=== PATIENT | male | born 1995 | race African-American/Black ===

== ENCOUNTER 2016-11-21 22:51 | Emergency (ER) | payer OTHER, MEDICAID ==
[2016-11-21 23:04] VITALS: BP 111/69; PULSE 66; RESP 16; TEMP 97.7; O2SAT 94
--- NOTE | 2016-11-21 23:12 | EDPHY ---
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 He states that he got home tonight took a hot shower and developed inner right thigh pain groin pain. He denies abdominal pain , nausea, vomiting, back pain or testicular pain, denies any or urinary complaints. Past Medical History:Brain abscess, Aspergillus sinus infection, premature 25 weeks, seizures Past Surgical History: extensive sinus surgery Social History: lives locally here [place], mom at bedside, lives independently in his own apartment no use of drugs alcohol tobacco products Family History: Noncontributory ROS REVIEW OF SYSTEMS: A comprehensive 10 point review of systems is otherwise negative aside from elements mentioned in the history of present illness. Exam Constitutional triage nursing summary reviewed, vital signs reviewed, awake/ alert. Eyes normal conjunctivae and sclera, EOMI, PERRLA. HENT normal inspection, atraumatic, moist mucus membranes, no epistaxis, neck supple/ no meningismus, no raccoon eyes. Respiratory clear to auscultation bilaterally, normal breath sounds, no respiratory distress, no wheezing. Cardiovascular rate normal, regular rhythm, no murmur, no edema, distal pulses normal. Gastrointestinal soft, non-tender, no rebound, no guarding, normal bowel sounds, no distension, no pulsatile mass. Genitourinary no CVA tenderness. Normal male exam normal cremasteric reflex normal testicular lie, no evidence of hernia in the inguinal or scrotal region, no abdominal hernia visualized. Musculoskeletal right inner groin: tender palpation over the in her hamstring tendon, that inserts into the right medial groin region, no testicular pain, normal exam, no obvious hernia, no inguinal lymphadenopathy , distally his right leg is neurovascularly intact, good pulse, good cap refill , good sensation, does have pain with external rotation of the right leg with resistance, and focal tenderness along the right inner groin region right upper thigh along attendant. No other obvious signs of trauma. no midline vertebral tenderness, full range of motion, no calf swelling, no tenderness of extremities , no meningismus, good pulses, neurovascularly intact. Skin pink, warm, & dry, no rash, skin atraumatic. Neurologic awake, alert and oriented x 3, AAOx3, moves all 4 extremities equally, motor intact, sensory intact, CN II-XII intact, normal cerebellar, normal vision, normal speech. Psychiatric normal mood/affect. Heme/Lymph/Immune no lymphadenopathy. Differential Diagnosis: This patient had an x-ray of his right hip to evaluate for bony abnormality, patient also had an ultrasound is right lower extremity make sure does not have a DVT, be given ibuprofen 800 mg for pain control. Medical Decision Making: Plan is for patient to have an x-ray of his right hip , ultrasound of his right lower extremity rule out DVT or bony abnormality. Re-evaluation: ED x-ray Right hip: Negative for acute bony abnormality specifically no fracture Ultrasound of the right lower extremity. The results of the study are negative for DVT I discussed the results of this study with the radiologist Dr. Varun Hatch [id number]; re-evaluation this time is patient is feeling better is able to ambulate , no hernia on exam, ultrasound x-ray unremarkable I have ordered him 2.5 mg of Valium for muscle spasm, ibuprofen 800 mg however prescription for both of these. He understands to take it easy, return emergency room if there is any worsening symptoms questions or concerns should also follow up his primary care doctor. Most likely this is inner groin strain pull From shoveling snow extensively today. 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 crani. (excision of cyst from brain abscess). seizures. aspirgilious fungus sinusitis with sinus surgeries x 7. asthma; dystonic reaction to reglan, allergies. R EYE SURGERY - Social History Smoking Status: Never smoked Constitutional: Initial Vital Signs Temperature (C) 36.5 C 11/21/16 22:57 Heart Rate 66 11/21/16 22:57 Respiratory Rate 16 11/21/16 22:57 Blood Pressure 111/69 11/21/16 22:57 O2 Sat (%) 94 11/21/16 22:57 O2 Delivery Mode Room Air Allergies/Adverse Reactions: egg [Egg] Allergy (Severe, Verified 06/25/16 21:32) peanut [Peanut] Allergy (Severe, Verified 06/25/16 21:32) Influenza Virus Vaccines [Influenza Virus Vaccine] Allergy (Intermediate, Verified 06/25/16 21:32) hydrocodone Allergy (Verified 06/25/16 21:32) latex [Latex] Allergy (Verified 06/25/16 21:32) metoclopramide HCl [From Reglan] Allergy (Verified 06/25/16 21:32) prednisone Allergy (Verified 06/25/16 21:32) Shellfish *RETIRED-07/26/12 [Shellfish] Allergy (Verified 06/25/16 21:32) tomato [Tomato] Allergy (Verified 06/25/16 21:32) tree nut [Tree Nut] Allergy (Verified 06/25/16 21:32) Home Medications: Medication Instructions Recorded Calcium Carbonate [Tums 500MG 12/26/15 (OTC)] Dymista Nasal Dupree 12/26/15 FEXOFENADINE HCL 12/26/15 Miralax 17 gm (OTC) 12/26/15 Pulmicort 12/26/15 Sertraline HCl 12/26/15 VIMPAT 12/26/15 Vitamin A & D 12/26/15 Albuterol [Proventil Inhaler HFA 1 - 2 puffs IH Q4H #1 mdi 06/29/16 (*)] Diazepam [Valium 5 MG (*)] 5 mg PO TID PRN #7 tab 11/22/16 Ibuprofen [Motrin (*)] 800 mg PO Q6-8PRN #10 tab 11/22/16 Medical Decision Making - Data Points Medications Given: Discontinued Medications Ibuprofen (Motrin) 800 mg PO EDNOW ONE Stop: 11/21/16 23:27 Last Admin: 11/21/16 23:44 Dose: 800 mg Departure - Departure Disposition: Home, Routine, Self-Care Clinical Impression: Groin strain Qualifiers: Encounter type: initial encounter Laterality: right Qualifier Code: (S76.211A) Strain of adductor muscle, fascia and tendon of right thigh, initial encounter Condition: Good Instructions: Groin Pain (ED), Groin Strain (ED) Additional Instructions: 1. Return to the emergency room if develops any worsening pain questions or concerns. 2. Take ibuprofen for the next 3-5 days 3. take Valium for muscle spasm however this can make you very sleepy. Referrals: NONE *PRIMARY CARE P,. [Primary Care Provider] - As per Instructions Prescriptions: Ibuprofen [Motrin (*)] 800 mg PO Q6-8PRN #10 tab Diazepam [Valium 5 MG (*)] 5 mg PO TID PRN #7 tab PRN Reason: Spasms
[2016-11-21] MEDS ORDERED: IBUPROFEN 200 MG TAB PO ONE (23:26)
--- NOTE | 2016-11-21 23:56 | DX ---
AP Supine Pelvis and Frog Lateral View of the Right Hip, 2 Views Total, at 11:34 p.m. Clinical History: 21-year-old male with right hip and right groin pain. Comparison Study: None. Findings: Bone mineralization is preserved. Each femoral head is well-seated within its respective ac etabulum. There is no fracture, dislocation, lytic or blastic lesion, or soft tissue calcification. T he femoral-acetabular joint spaces are preserved. The ischial pubic rami are intact. There is no symp hysis pubis or SI joint diastasis. The sacral arcuate lines are well-contoured. The lumbosacral junct ion appears normal. Impression: Normal.
--- NOTE | 2016-11-22 00:16 | US ---
Venous Duplex Doppler Study of the Right Lower Extremity Clinical Indications: 21-year-old male complaining of right groin pain since 9:00 p.m. Rule out DVT. Technique: A high-frequency transducer was used for imaging and Doppler study of the deep veins of t he leg from the upper calf to the groin. Pulsed Doppler and color Doppler were utilized, along with various maneuvers, to assess flow in the deep veins. Cursory evaluation of the left common femoral ve in was obtained for comparison purposes, and is normal. Comparison Exam: None. Findings: The deep veins of the right groin, thigh, knee, and upper calf are well-displayed, and are normally compressible. Doppler flow patterns are unremarkable. There is no evidence of deep venous thrombosis. There is normal compression of the greater saphenous vein, without superficial thrombosi s. The popliteal fossa is unremarkable. Impression: There is no sonographic evidence of deep vein thrombosis in the right leg. Results were called to Dr. Yared Silverio. A test result has been communicated to a licensed care provider and documented in [facility], 12:13:40 A M, 11/22/2016, [facility] Message ID [id number].
[2016-11-22] MEDS ORDERED: DIAZEPAM 5 MG TAB PO ONE (00:25)
== END 2016-11-22 00:40 | disposition home or self-care (01) ==
DX: S76.211A Strain of adductor muscle, fascia and tendon of right thigh, initial encounter (principal); J45.909 Unspecified asthma, uncomplicated; Z91.010 Allergy to peanuts; Z91.040 Latex allergy status; X58.XXXA Exposure to other specified factors, initial encounter; Y99.0 Civilian activity done for income or pay; Y93.H1 Activity, digging, shoveling and raking

== ENCOUNTER 2017-04-24 22:43 | Emergency (ER) | payer OTHER, MEDICAID ==
[2017-04-24] MEDS ORDERED: NS 1,000 ML IV ONE (23:08)
[2017-04-24 23:17] LABS: % IMMATURE GRANULYOCYTES 0.2 % (0.0-1.1); ABSOLUTE IMMATURE GRANULOCYTES 0.01 10^3/uL (0.00-0.10); ADD DIFF? NO; ADD MORPH? NO; ADD SCAN? NO; ATYPICAL LYMPHOCYTE FLAG 0 (0-99); FRAGMENT RBC FLAG 0 (0-99); HEMATOCRIT 48.7 % (40.0-51.0); HEMOGLOBIN 16.4 g/dL (13.7-17.5); LEFT SHIFT FLG 0 (0-99); LIPEMIA HEMOLYSIS FLAG 80 (0-99); MEAN CELL HEMOGLOBIN 28.5 pg (27.9-34.1); MEAN CELL HEMOGLOBIN CONCENTR. 33.7 g/dL (32.4-36.7); MEAN CELL VOLUME 84.7 fL (81.5-99.8); MEAN PLATELET VOLUME 12.6 fL (8.7-11.7); PLATELET CLUMPS FLAG 0 (0-99); PLATELET COUNT 146 10^3/uL (150-400); RED BLOOD CELL COUNT 5.75 10^6/uL (4.40-6.38)
[2017-04-24 23:24] LABS: ANION GAP 10 mEq/L (8-16); CALCIUM 9.7 mg/dL (8.5-10.4); CARBON DIOXIDE 22 mEq/l (22-31); CHLORIDE 106 mEq/L (97-110); CREATININE 1.4 mg/dL (0.7-1.3); GLOMERULAR FILTRATION RATE > 60; GLUCOSE 81 mg/dL (70-100); POTASSIUM 4.1 mEq/L (3.5-5.2); SODIUM 138 mEq/L (134-144)
[2017-04-24] MEDS ORDERED: LORazepam 2 MG/ML INJ ONE (23:36)
[2017-04-25] MEDS ORDERED: LORazepam 2 MG/ML INJ IVP ONE (00:30)
[2017-04-25] MEDS ORDERED: ACETAMINOPHEN 325 MG TAB PO ONE (00:30)
--- NOTE | 2017-04-25 00:34 | EDPHY ---
H & P Stated Complaint: "heat exhaustion" seizure Time Seen by Provider: 04/24/17 23:24 HPI/ROS: CHIEF COMPLAINT: Concerned about heat exhaustion HISTORY OF PRESENT ILLNESS: This is a 22-year-old male with a history of being born at 25 weeks, developmental delay, and a seizure disorder along with pseudoseizures. He presents with his mother edelmira. They are both concerned about the possibility of heat exhaustion. He spent the day outside, the temperature today was in the 90s, doing yd work. He contacted her around 7:00 p.m. and stated that he did not feel well. When she saw him she recommended of cool shower and some ice packs, both of which he tried. He continued to feel poorly. He takes Vimpat for seizures. She noticed that he has had 2 staring episodes, 1 at triage and 1 at home. These have been self-limited. He has not been altered afterwards. He has not otherwise been ill recently. He does not provide any specifics about how he is feeling but just states that he does not feel well. He reports headache, which his mother states is common for him and often follows seizure activity. REVIEW OF SYSTEMS: A ten point review of systems was performed and is negative with the exception of the items mentioned in the HPI. His mother assisted with this. 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 seizures and pseudoseizures. aspirgillous fungus sinusitis with sinus surgeries x 7. asthma. 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 R EYE SURGERY - Social History Smoking Status: Never smoked Alcohol Use: None Drug Use: None Additional Social History: He is accompanied by his mother today. He lives in a supervised setting. - Physical Exam Exam: General Appearance: Alert. Vital signs reviewed. Eyes: Pupils equal and round, no conjunctival injection, no discharge. Anicteric. ENT, Mouth: Mucous membranes are moist, no oropharyngeal erythema or edema. No tongue injury. Neck: No lymphadenopathy, supple. Respiratory: Lungs are clear to auscultation; no wheezes, rales, or rhonchi. Cardiovascular: Regular rate and rhythm; no murmur, rub, or gallop. Gastrointestinal: Abdomen is soft and nontender, no masses or organomegaly, bowel sounds normal. Skin: Warm and dry, no rashes on exposed skin, normal color. Back: Nontender to palpation over the thoracolumbar spine. No CVAT. Extremities: No lower extremity edema, no calf tenderness or swelling. Neurological: Alert and oriented to hospital and situation. Moving all four extremities easily and equally. KELLIE. EOMI. Facial expression symmetric. Tongue midline. Strength 5/5 with testing of major motor groups. Psychiatric: Flat affect. Constitutional: Initial Vital Signs Temperature (C) 36.4 C 04/24/17 22:50 Heart Rate 63 04/24/17 22:50 Respiratory Rate 16 04/24/17 22:50 Blood Pressure 112/85 H 04/24/17 22:50 O2 Sat (%) 99 04/24/17 22:50 O2 Delivery Mode Room Air O2 (L/minute) 2 Allergies/Adverse Reactions: egg [Egg] Allergy (Severe, Verified 04/24/17 22:48) peanut [Peanut] Allergy (Severe, Verified 04/24/17 22:48) Influenza Virus Vaccines [Influenza Virus Vaccine] Allergy (Intermediate, Verified 04/24/17 22:48) hydrocodone Allergy (Verified 04/24/17 22:48) latex [Latex] Allergy (Verified 04/24/17 22:48) metoclopramide HCl [From Reglan] Allergy (Verified 04/24/17 22:48) prednisone Allergy (Verified 04/24/17 22:48) Shellfish *RETIRED-07/26/12 [Shellfish] Allergy (Verified 04/24/17 22:48) tomato [Tomato] Allergy (Verified 04/24/17 22:48) tree nut [Tree Nut] Allergy (Verified 04/24/17 22:48) Home Medications: Medication Instructions Recorded Calcium Carbonate [Tums 500MG 12/26/15 (OTC)] FEXOFENADINE HCL 12/26/15 Miralax 17 gm (OTC) 12/26/15 Pulmicort 02/10/16 Sertraline HCl 12/26/15 VIMPAT 12/26/15 Vitamin A & D 12/26/15 Albuterol [Proventil Inhaler HFA 1 - 2 puffs IH Q4H #1 mdi 06/29/16 (*)] Diazepam [Valium 5 MG (*)] 5 mg PO TID PRN #7 tab 11/22/16 Ibuprofen [Motrin (*)] 800 mg PO Q6-8PRN #10 tab 11/22/16 Medical Decision Making ED Course/Re-evaluation: During my initial evaluation he had a brief episode of staring. No associated limb movements. No loss of consciousness. This lasted perhaps 1-2 minutes. He received a dose of Ativan IV at that time. This episode resolved. There was no postictal state. In discussion with his mother she thinks that these are likely pseudoseizures that he is experiencing. She is concerned about the possibility of heat exhaustion. I do not think that he is currently suffering from heat exhaustion. He received 1 L of normal saline intravenously for treatment of presumed dehydration after being outside all day with very little water intake. He is noted to have a creatinine of 1.4. In the past his creatinine is been normal. He has a normal BUN. Although this could be related to dehydration I would expect to see an elevation of BUN if that was the case. I am recommending that this be followed up by his primary care provider. It is possible that 1 of his medications is behind this elevation of creatinine. He is also noted to have slightly low platelets, which has been the case in the past. He was observed in the emergency department for 2 hours during which time he had no further seizure-like episodes. I feel comfortable with him returning home and his mother agrees. She will be with him tonight. I am encouraging follow-up both with his neurologist and with his primary care physician. I discussed with him things that might increase his seizure activity with these including temperature extremes, not eating or drinking regularly, and lack of sleep. Differential Diagnosis: Seizure including but not limited to electrolyte abnormality, alcohol withdrawal , medication noncompliance, head injury, and breakthrough seizure. - Data Points Laboratory Results: Laboratory Results 04/24/17 23:05 04/24/17 23:05 Medications Given: Discontinued Medications Acetaminophen (Tylenol) 650 mg PO EDNOW ONE Stop: 04/25/17 00:31 Last Admin: 04/25/17 01:05 Dose: 650 mg Sodium Chloride (Ns) 1,000 mls @ 0 mls/hr IV ONCE ONE PRN Reason: Wide Open Stop: 04/24/17 23:09 Last Admin: 04/24/17 23:10 Dose: 1,000 mls Lorazepam (Ativan Injection) 1 mg IVP EDNOW ONE Stop: 04/25/17 00:31 Last Admin: 04/24/17 23:30 Dose: 1 mg Departure - Departure Disposition: Home, Routine, Self-Care Clinical Impression: Seizure, Elevated serum creatinine Condition: Good Instructions: Epilepsy (ED), Nonepileptic Seizures (ED), Impaired Kidney Function (ED) Additional Instructions: Continue all of your medications as prescribed. Be sure that you drink plenty of water, eat regular meals, and get a good night's sleep. Follow up with your neurologist. Your creatinine, a measure of kidney function, was slightly elevated at 1.4 today. It might be because of being outside in the heat all day and not drinking enough water. Your primary care doctor should know about this. This lab value should be rechecked. Referrals: VIKTORIYA BORJA [Other] - As per Instructions
[2017-04-25 01:13] VITALS: BP 117/77; PULSE 75; RESP 20; TEMP 97.7; O2SAT 97
== END 2017-04-25 01:48 | disposition home or self-care (01) ==
DX: G40.909 Epilepsy, unspecified, not intractable, without status epilepticus (principal); R79.89 Other specified abnormal findings of blood chemistry; J45.909 Unspecified asthma, uncomplicated; Z91.010 Allergy to peanuts; Z91.040 Latex allergy status
CPT/HCPCS: 96361; 96374; 99284; J2060

== ENCOUNTER 2017-06-26 21:34 | Emergency (ER) | payer OTHER, MEDICAID ==
[2017-06-26 21:43] VITALS: RESP 16; TEMP 97.9
[2017-06-26] MEDS ORDERED: ALBUTEROL 3 ML DEYVIAL IH ONE (21:58)
--- NOTE | 2017-06-26 22:06 | EDPHY ---
H & P Stated Complaint: difficulty breathing with cough today, Hx of asthma- Time Seen by Provider: 06/26/17 21:49 HPI/ROS: Chief Complaint: Cough, shortness of breath HPI: A 22-year-old male with a history of developmental delay, ex-25 week preemie with also history of asthma and seizure disorders presenting with 1 day of worsening cough. The patient's father states that he started having cough last night given some Tessalon last tonight. Over the course today states that he has had persistent cough. He has used an albuterol inhaler and also use an albuterol neb at home with some relief. Denies any fevers or chills. No chest pain. No shortness of breath. No nausea or vomiting. Patient has a cough productive of whitish sputum. Was complaining of some chest tightness at 4 o' clock this afternoon that has since resolved. Last episode was 8 o'clock. Patient states that he is not on regular control inhalers. Dad thinks that the albuterol that he game in a nebulizer might be old. ROS: 10 point Review of Systems is negative except as noted in the HPI. PMH: A ex-25 week, developmental delay, seizure disorder, asthma Social History: No smoking, there are smokers in the home Family History: non-contributory Physical Exam: Gen: Awake, Alert, No Distress HEENT: Nose: no rhinorrhea Eyes: PERRLA, EOMI Mouth: Moist mucosa Neck: Supple, no JVD Chest: nontender, very mild wheezes at the bilateral bases, good air movement, no rales or rhonchi Heart: S1, S2 normal, no murmur Abd: Soft, non-tender, no guarding Back: no CVA tenderness, no midline tenderness Ext: no edema, non-tender Skin: no rash Neuro: CN II-XII intact, Sensation grossly intact, Strength 5/5 in bilateral upper and lower extremities - Personal History Current Tetanus/Diphtheria Vaccine: Yes Tetanus Vaccine Date: < 10 years - Medical/Surgical History Hx Asthma: Yes Hx Chronic Respiratory Disease: No Hx Diabetes: No Hx Cardiac Disease: No Hx Renal Disease: No Hx Cirrhosis: No Hx Alcoholism: No Hx HIV/AIDS: No Hx Splenectomy or Spleen Trauma: No Other PMH: 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 seizures and pseudoseizures. aspirgillous fungus sinusitis with sinus surgeries x 7. asthma. 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 R EYE SURGERY - Social History Smoking Status: Never smoked Constitutional: Initial Vital Signs Temperature (C) 36.6 C 06/26/17 21:41 Heart Rate 80 06/26/17 21:41 Respiratory Rate 16 06/26/17 21:41 Blood Pressure 125/79 H 06/26/17 21:41 O2 Sat (%) 95 06/26/17 21:41 O2 Delivery Mode Room Air Allergies/Adverse Reactions: egg [Egg] Allergy (Severe, Verified 04/24/17 22:48) peanut [Peanut] Allergy (Severe, Verified 04/24/17 22:48) Influenza Virus Vaccines [Influenza Virus Vaccine] Allergy (Intermediate, Verified 04/24/17 22:48) hydrocodone Allergy (Verified 04/24/17 22:48) latex [Latex] Allergy (Verified 04/24/17 22:48) metoclopramide HCl [From Reglan] Allergy (Verified 04/24/17 22:48) prednisone Allergy (Verified 04/24/17 22:48) Shellfish *RETIRED-07/26/12 [Shellfish] Allergy (Verified 04/24/17 22:48) tomato [Tomato] Allergy (Verified 04/24/17 22:48) tree nut [Tree Nut] Allergy (Verified 04/24/17 22:48) Home Medications: Medication Instructions Recorded Calcium Carbonate [Tums 500MG 12/26/15 (OTC)] FEXOFENADINE HCL 12/26/15 Miralax 17 gm (OTC) 12/26/15 Pulmicort 12/26/15 Sertraline HCl 12/26/15 VIMPAT 12/26/15 Vitamin A & D 12/26/15 Albuterol [Proventil Inhaler HFA 1 - 2 puffs IH Q4H #1 mdi 06/29/16 (*)] Ibuprofen [Motrin (*)] 800 mg PO Q6-8PRN #10 tab 11/22/16 Albuterol 5 mg/ml INH [Proventil] 2.5 mg IH QID #25 btl 06/26/17 Olopatadine 0.1% 06/26/17 Topiramate 06/26/17 Medical Decision Making ED Course/Re-evaluation: Patient is improved after albuterol nebulizer treatment. Lungs are clear. Vital signs and oxygen levels are normal. He is afebrile. He is otherwise well- appearing. No focal findings on exam. Will discharge with prescription for a new abuse oral solution, follow up with primary care physician on Thursday. Return for worsening. - Data Points Medications Given: Discontinued Medications Albuterol (Proventil Neb) 3 ml IH EDNOW ONE Stop: 06/26/17 21:59 Last Admin: 06/26/17 22:08 Dose: 3 ml Departure - Departure Disposition: Home, Routine, Self-Care Clinical Impression: Exacerbation of asthma Condition: Good Instructions: Asthma (ED) Additional Instructions: Follow up with your primary care physician on Thursday. Return emergency depart for increasing shortness of breath, worsening cough, fevers, chills, or any other concerns. Referrals: NONE *PRIMARY CARE P,. [Primary Care Provider] - As per Instructions Prescriptions: Albuterol 5 mg/ml INH [Proventil] 2.5 mg IH QID #25 btl
[2017-06-26 23:06] VITALS: BP 111/74; PULSE 64; O2SAT 96
== END 2017-06-26 23:06 | disposition home or self-care (01) ==
DX: J45.901 Unspecified asthma with (acute) exacerbation (principal); Z91.040 Latex allergy status

== ENCOUNTER 2017-10-30 13:01 | Emergency (ER) | payer OTHER, MEDICAID ==
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
[2017-10-30 13:14] VITALS: BP 139/69; PULSE 71; RESP 18; TEMP 97.7; O2SAT 100
== END 2017-10-30 14:16 | disposition home or self-care (01) ==
LOC: EDUNIT#
DX: F63.9 Impulse disorder, unspecified (principal)

== ENCOUNTER 2017-12-10 15:55 | Emergency (ER) | payer OTHER, MEDICAID ==
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
[2017-12-10 17:48] LABS: PLATELET COUNT 159 10^3/uL (150-400)
[2017-12-10 23:40] VITALS: BP 109/67; PULSE 71; RESP 20; TEMP 98.1; O2SAT 93
--- NOTE | 2017-12-11 11:23 | ASMTCMCOM ---
CM Note CM Note Notes: Chart review and follow up call to patient's mother, Allyson . Patient was seen in the ER last night and discharged after TLC/behavioral health consult and assessment. Patient's mother tells this CM that she is not interested in a referral or follow up at [facility] but is considering contacting a physician who has been involved with patient in the past-Dr. Mario Hale. Allyson is appreciative of CM call and I have asked her to call back with any questions or referral information prn Date Signed: 12/11/2017 11:22 AM Electronically Signed By:Heide Brar RN
== END 2017-12-10 23:40 | disposition home or self-care (01) ==
LOC: EDUNIT#
DX: F91.8 Other conduct disorders (principal); J45.909 Unspecified asthma, uncomplicated; Z91.010 Allergy to peanuts; Z91.040 Latex allergy status
CPT/HCPCS: 80305; G0480

== ENCOUNTER 2018-04-09 14:37 | Emergency (ER) | payer OTHER, MEDICAID ==
--- NOTE | 2018-04-09 14:48 | CPEKG ---
Heart Rate: 61 RR Interval: 984 P-R Interval: 160 QRSD Interval: 80 QT Interval: 392 QTC Interval: 395 P Bethel: 53 QRS Bethel: 56 T Wave Bethel: 45 EKG Severity - NORMAL ECG - EKG Impression: SINUS RHYTHM Electronically Signed By: Regis Macdonald 14-Apr-2018 11:59:43
--- NOTE | 2018-04-09 14:51 | EDPHY ---
H & P Time Seen by Provider: 04/09/18 14:40 HPI/ROS: CHIEF COMPLAINT: Syncopal episode HISTORY OF PRESENT ILLNESS: 23-year-old male with medical history significant for seizure disorder, impulse control disorder, developmental delay, arrives by ambulance. History provided by co-worker who describes that he and a co-worker were working in a hot green house, been standing for an extended period of time , complaining of feeling hot and lightheaded and then had a syncopal episode. No seizure activity. No incontinence. No oral trauma. He has no complaints of pain or discomfort. REVIEW OF SYSTEMS: A ten point review of systems was performed and is negative with the exception of the items mentioned in the HPI PAST MEDICAL & SURGICAL HISTORY: Impulse control disorder. Developmental delay. Seizure disorder. SOCIAL HISTORY: Images reviewed by myself PHYSICAL EXAM (Prior to examination, patient consented to physical exam, hands were washed and my usual and customary physical exam procedures followed) 1) GENERAL: Well-developed, well-nourished, alert and oriented. Appears to be in no acute distress. 2) HEAD: Normocephalic, atraumatic 3) HEENT: Pupils equal, round, reactive to light bilaterally. Sclera anicteric. No raccoon eyes. No Medina sign. No rhinorrhea. No otorrhea. Nasopharynx, oropharynx, clear, no lesions. No oral trauma. Ears bilaterally with normal tympanic membranes. 4) NECK: Full range of motion, no meningeal signs. 5) LUNGS: Clear auscultation bilaterally, no wheezes, no rhonchi, no retractions. 6) HEART: Regular rate and rhythm, no murmur, no heave, no gallop. 7) ABDOMEN: No guarding, no rebound, no focal tenderness, negative McBurney's 8) MUSCULOSKELETAL: Moving all extremities, no focal areas of tenderness, no obvious trauma. No peripheral edema or discoloration. 9) BACK: No CVA tenderness, no midline vertebral tenderness, no fluctuance, no step-off, no obvious trauma, no visual or palpable abnormality. 10) SKIN: No rash, no petechiae. 11) Psychiatric: Patient is oriented X 3, there is no agitation. DIFFERENTIAL DIAGNOSIS: In no particular order including but limited to vasovagal syncope, orthostatic hypotension, seizure, cardiac dysrhythmia, heat exhaustion - Personal History Tetanus Vaccine Date: < 10 years - Medical/Surgical History Hx Asthma: Yes Hx Chronic Respiratory Disease: No Hx Diabetes: No Hx Cardiac Disease: No Hx Renal Disease: No Hx Cirrhosis: No Hx Alcoholism: No Hx HIV/AIDS: No Hx Splenectomy or Spleen Trauma: No Other PMH: 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 seizures and pseudoseizures. aspirgillous fungus sinusitis with sinus surgeries x 7. asthma. 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 R EYE SURGERY - Social History Smoking Status: Never smoked Constitutional: Initial Vital Signs Temperature (C) 36.7 C 04/09/18 14:44 Heart Rate 65 04/09/18 14:44 Respiratory Rate 16 04/09/18 14:44 Blood Pressure 105/78 04/09/18 14:44 O2 Sat (%) 96 04/09/18 14:44 O2 Delivery Mode Room Air Allergies/Adverse Reactions: egg [Egg] Allergy (Severe, Verified 04/24/17 22:48) peanut [Peanut] Allergy (Severe, Verified 04/24/17 22:48) Influenza Virus Vaccines [Influenza Virus Vaccine] Allergy (Intermediate, Verified 04/24/17 22:48) hydrocodone Allergy (Verified 04/24/17 22:48) latex [Latex] Allergy (Verified 04/24/17 22:48) metoclopramide HCl [From Reglan] Allergy (Verified 04/24/17 22:48) prednisone Allergy (Verified 04/24/17 22:48) Shellfish *RETIRED-07/26/12 [Shellfish] Allergy (Verified 04/24/17 22:48) tomato [Tomato] Allergy (Verified 04/24/17 22:48) tree nut [Tree Nut] Allergy (Verified 04/24/17 22:48) Home Medications: Medication Instructions Recorded Calcium Carbonate [Tums 500MG 12/26/15 (OTC)] FEXOFENADINE HCL 12/26/15 Miralax 17 gm (OTC) 12/26/15 Pulmicort 12/26/15 Sertraline HCl 12/26/15 VIMPAT 12/26/15 Vitamin A & D 12/26/15 Albuterol [Proventil Inhaler HFA 1 - 2 puffs IH Q4H #1 mdi 06/29/16 (*)] Ibuprofen [Motrin (*)] 800 mg PO Q6-8PRN #10 tab 11/22/16 Albuterol 5 mg/ml INH [Proventil] 2.5 mg IH QID #25 btl 06/26/17 Olopatadine 0.1% 06/26/17 Topiramate 06/26/17 EPIPEN 12/10/17 Flonase Nasal [place] 12/10/17 MIDAZOLAM 12/10/17 Sertraline HCl 12/10/17 Unisom Sleep Aid 12/10/17 Xopenex 12/10/17 diphenhydrAMINE 12/10/17 Medical Decision Making ED Course/Re-evaluation: 2:50 p.m.: I reviewed the patient's old medical records. This time he has no complaints of pain or discomfort. Plan will be EKG, laboratory studies, IV hydration. Re-evaluation with serial examinations. Patient has been answering questions appropriately. Doubt seizure. We discussed possible heat exhaustion versus orthostatic hypotension versus vasovagal syncope. At this time I do not think that hospitalization is indicated. Mother feels comfortable being discharged home. Patient appears well, smiling. Care of patient under supervision of [ secondary] supervising physician Dr Watt. - Data Points Laboratory Results: Laboratory Results 04/09/18 15:51 04/09/18 14:55 Departure - Departure Disposition: Home, Routine, Self-Care Clinical Impression: Syncope, Heat exhaustion Condition: Good Instructions: Heat Exhaustion (ED), Syncope (ED) Referrals: Patient,NotPresent [Unknown] - As per Instructions
[2018-04-09 16:47] LABS: PLATELET COUNT 150 10^3/uL (150-400)
[2018-04-09 17:12] VITALS: BP 125/78
== END 2018-04-09 17:12 | disposition home or self-care (01) ==
LOC: EDUNIT#
DX: R55 Syncope and collapse (principal); T67.5XXA Heat exhaustion, unspecified, initial encounter; J45.909 Unspecified asthma, uncomplicated; Z91.010 Allergy to peanuts; Z91.040 Latex allergy status

== ENCOUNTER 2018-09-09 23:34 | Emergency (ER) | payer OTHER, MEDICAID ==
[2018-09-09 23:39] VITALS: BP 127/85
--- NOTE | 2018-09-09 23:59 | EDPHY ---
H & P Stated Complaint: sinus infection & MARTINEZ Time Seen by Provider: 09/09/18 23:57 HPI/ROS: HPI: This is a 23-year-old male who presents with Chief Complaint: sinus infection & MARTINEZ Location: Bilateral sinus Quality: Pressure and headache Duration: 1-2 days Signs and Symptoms: no fever, no nausea, no vomiting, no photophobia, no noise sensitivity, no neck stiffness, no ear pain, no tinnitus,+ nasal congestion, + sinus pressure, + yellowish nasal discharge, no weakness, no radiation, no aura Timing: Acute on chronic Severity: [id number] Context: Patient has a complicated history of craniotomy and 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 Patient has been complaining of right eye and right cheek headache for the last several hours. Mother gave Excedrin p.m. With no relief of symptoms. Mother is requesting antibiotics. Patient is scheduled for sinus surgery at the [facility] on September 21. He has been outside playing all day. He complains of some left greater than right leg cramping. He reports that the cramping increases with knee flexion on the right. Denies any paresthesias, weakness, decreased range of motion. Modifying Factors: Nasal sprays in Excedrin p.m. Comment: ROS: A comprehensive 10 system review of systems is otherwise negative aside from elements mentioned in the history of present illness. 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 Family history noncontributory. CONSTITUTIONAL: Well-appearing young adult black male, awake and alert, no obvious distress HEENT: Atraumatic and normocephalic, PERRL, EOMI. Strabismus noted. Nares patent; yellowish rhinorrhea; mild nasal mucosal edema; + bilateral maxillary sinus tenderness. Tympanic membranes clear. Oropharynx clear, no exudate and moist pink mucosa. Airway patent. No lymphadenopathy. No meningismus. Cardiovascular: Normal S1/S2, regular rate, regular rhythm, without murmur rub or gallop. PULMONARY/CHEST: Symmetrical and nontender. Clear to auscultation bilaterally. Good air movement. No accessory muscle usage. ABDOMEN: Soft, nondistended, nontender, no rebound, no guarding, no peritoneal signs, no masses or organomegaly. No CVAT. EXTREMITIES: 2/2 pulses, strength 5/5, no deformities, no clubbing, no cyanosis or edema. NEUROLOGICAL: no focal neuro deficits. GCS 15. Plantar reflexes intact. When I place legs into a flexed position patient is able to passively extend them at the hip, knee. SKIN: Warm and dry, no erythema. no rash. Good capillary refill. 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 seizures and pseudoseizures. aspirgillous fungus sinusitis with sinus surgeries x 7. asthma. 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 R EYE SURGERY - Social History Smoking Status: Never smoked Constitutional: Initial Vital Signs Temperature (C) 36.9 C 09/09/18 23:38 Heart Rate 64 09/09/18 23:38 Respiratory Rate 16 09/09/18 23:38 Blood Pressure 127/85 H 09/09/18 23:38 O2 Sat (%) 95 09/09/18 23:38 O2 Delivery Mode Room Air Allergies/Adverse Reactions: egg [Egg] Allergy (Severe, Verified 04/24/17 22:48) peanut [Peanut] Allergy (Severe, Verified 04/24/17 22:48) Influenza Virus Vaccines [Influenza Virus Vaccine] Allergy (Intermediate, Verified 04/24/17 22:48) hydrocodone Allergy (Verified 04/24/17 22:48) latex [Latex] Allergy (Verified 04/24/17 22:48) metoclopramide HCl [From Reglan] Allergy (Verified 04/24/17 22:48) prednisone Allergy (Verified 04/24/17 22:48) Shellfish *RETIRED-07/26/12 [Shellfish] Allergy (Verified 04/24/17 22:48) tomato [Tomato] Allergy (Verified 04/24/17 22:48) tree nut [Tree Nut] Allergy (Verified 04/24/17 22:48) Home Medications: Medication Instructions Recorded Calcium Carbonate [Tums 500MG 12/26/15 (OTC)] FEXOFENADINE HCL 12/26/15 Miralax 17 gm (OTC) 12/26/15 Pulmicort 12/26/15 Sertraline HCl 12/26/15 VIMPAT 12/26/15 Vitamin A & D 12/26/15 Albuterol [Proventil Inhaler HFA 1 - 2 puffs IH Q4H #1 mdi 06/29/16 (*)] Ibuprofen [Motrin (*)] 800 mg PO Q6-8PRN #10 tab 11/22/16 Albuterol 5 mg/ml INH [Proventil] 2.5 mg IH QID #25 btl 06/26/17 Olopatadine 0.1% 06/26/17 Topiramate 06/26/17 EPIPEN 12/10/17 Flonase Nasal [place] 12/10/17 MIDAZOLAM 12/10/17 Sertraline HCl 12/10/17 Unisom Sleep Aid 12/10/17 Xopenex 12/10/17 diphenhydrAMINE 12/10/17 Amoxicillin/Clavulanate Pot 875 mg PO BID #14 tab 09/10/18 [Augmentin 875 MG TAB (*)] Medical Decision Making ED Course/Re-evaluation: Vital signs reviewed and stable upon arrival. Long discussion with patient and mother, they are requesting antibiotics and pain control. Given Augmentin prepack and prescription for same along with Percocet prepack. No LOC. No neurological deficits. Offered mother head CT imaging and she politely declined. Patient is closely followed by Neurology and ENT at [place]. This patient was seen under the supervision of my secondary supervising physician. I evaluated care for this patient independently. Discussed this patient with Dr. Chase. Differential Diagnosis: Headache including but not limited to subarachnoid hemorrhage, migraine headache , tension headache and infectious causes such as meningitis, pharyngitis and sinusitis. - Data Points Medications Given: Discontinued Medications Amoxicillin/Clavulanate Potassium (Augmentin 875mg) 875 mg PO EDNOW ONE PRN Reason: Protocol Stop: 09/10/18 00:18 Last Admin: 09/10/18 00:19 Dose: 875 mg Oxycodone/Acetaminophen (Percocet 5/325mg Prepack#4) 1 btl TAKEHOME EDNOW ONE Stop: 09/10/18 00:13 Last Admin: 09/10/18 00:19 Dose: 1 btl Departure - Departure Disposition: Home, Routine, Self-Care Clinical Impression: Sinus headache Chronic sinusitis, unspecified Qualifiers: Sinusitis location: unspecified location Qualified Code(s): J32.9 - Chronic sinusitis, unspecified Condition: Good Instructions: Sinusitis (ED) Additional Instructions: Take Tylenol 650 mg every 4 hours and/or Ibuprofen 600 mg every 8 hours with food as needed for pain. Use Percocet every 6 hours as needed for severe/break through pain. Do not use Tylenol and Percocet concomitantly. Take Augmentin as directed until complete. Do not skip a dose. Follow-up with ENT at [facility] as planned for surgery on September 21. Referrals: CHRIS WISE [Primary Care Provider] - As per Instructions Prescriptions: Amoxicillin/Clavulanate Pot [Augmentin 875 MG TAB (*)] 875 mg PO BID #14 tab
[2018-09-10] MEDS ORDERED: OXYCODONE/APAP 5/325MG PREPACK#4 BTL TAKEHOME ONE (00:12)
[2018-09-10] MEDS ORDERED: AMOXICILLIN/CLAVULANATE POT 875/125 MG TAB PO ONE ×2 (00:15→00:17)
== END 2018-09-10 00:37 | disposition home or self-care (01) ==
DX: R51 Headache (principal); J32.9 Chronic sinusitis, unspecified; R62.50 Unspecified lack of expected normal physiological development in childhood; Z86.011 Personal history of benign neoplasm of the brain

== ENCOUNTER 2018-11-12 21:43 | Emergency (ER) | payer OTHER, MEDICAID ==
--- NOTE | 2018-11-12 22:54 | EDPHY ---
H & P Time Seen by Provider: 11/12/18 22:00 HPI/ROS: Chief complaint: Right ankle injury History of present illness: This is a 21-year-old male who presents with family for a right ankle injury. [place] Since then mild discomfort on the inner aspect of the ankle. No report of open wounds. No abnormal coolness or paresthesias. No other injuries reported. Smoking Status: Never smoked Physical Exam: General: Alert, nontoxic. Skin: No lesions consistent with trauma to the right lower extremity. Musculoskeletal: Tenderness along the medial malleolus. The rest of the ankle is nontender. The Achilles appears intact. The foot and lower leg are nontender. He is moving the digits, ankle and knee in all salomon well. Vascular: DP and PT pulses 2+. Neurologic: Sensation intact in the right leg and foot. Constitutional: Initial Vital Signs Temperature (C) 36.3 C 11/12/18 21:48 Heart Rate 75 11/12/18 21:48 Respiratory Rate 18 11/12/18 21:48 Blood Pressure 161/103 H 11/12/18 21:48 O2 Sat (%) 98 11/12/18 21:48 O2 Delivery Mode Room Air Allergies/Adverse Reactions: egg [Egg] Allergy (Severe, Verified 11/12/18 21:47) peanut [Peanut] Allergy (Severe, Verified 11/12/18 21:47) Influenza Virus Vaccines [Influenza Virus Vaccine] Allergy (Intermediate, Verified 11/12/18 21:47) hydrocodone Allergy (Verified 11/12/18 21:47) latex [Latex] Allergy (Verified 11/12/18 21:47) metoclopramide HCl [From Reglan] Allergy (Verified 11/12/18 21:47) prednisone Allergy (Verified 11/12/18 21:47) Shellfish *RETIRED-07/26/12 [Shellfish] Allergy (Verified 11/12/18 21:47) tomato [Tomato] Allergy (Verified 11/12/18 21:47) tree nut [Tree Nut] Allergy (Verified 11/12/18 21:47) Home Medications: Medication Instructions Recorded Calcium Carbonate [Tums 500MG 12/26/15 (OTC)] FEXOFENADINE HCL 12/26/15 Miralax 17 gm (OTC) 02/10/16 Pulmicort 12/26/15 VIMPAT 12/26/15 Vitamin A & D 12/26/15 Albuterol [Proventil Inhaler HFA 1 - 2 puffs IH Q4H #1 mdi 06/29/16 (*)] Ibuprofen [Motrin (*)] 800 mg PO Q6-8PRN #10 tab 11/22/16 Albuterol 5 mg/ml INH [Proventil] 2.5 mg IH QID #25 btl 06/26/17 Topiramate 06/26/17 EPIPEN 12/10/17 Flonase Nasal [place] 12/10/17 MIDAZOLAM 12/10/17 Sertraline HCl 12/10/17 Unisom Sleep Aid 12/10/17 Xopenex 12/10/17 diphenhydrAMINE 12/10/17 MDM/Departure - MDM Imaging Results: Imaging Impressions Ankle X-Ray 11/12/18 21:53 Impression: No evidence of right ankle fracture. Imaging: I viewed and interpreted images myself ED Course/Re-evaluation: Patient seen under the supervision of my secondary supervising physician Dr. Vipul Lovett. Patient presents to the emergency department with family for a right ankle injury. It is neurovascularly intact with good musculoskeletal control. X-ray negative. Likely sprain/strain. Home care is discussed. They are to follow up with primary care doctor or ortho for recheck. Return precautions are given. Family voiced understanding and agreement with plan. - Depart Disposition: Home, Routine, Self-Care Clinical Impression: Ankle sprain Qualifiers: Encounter type: initial encounter Involved ligament of ankle: unspecified ligament Laterality: right Qualified Code(s): S93.401A - Sprain of unspecified ligament of right ankle, initial encounter Condition: Good Instructions: Ankle Sprain (ED) Additional Instructions: Follow-up with a primary care doctor for continued evaluation and care Use ibuprofen 600 mg 3 times a day for the next 2-3 days Ice the injury, 20 min on, 3 times daily for the next 3 days If symptoms worsen or new symptoms develop return to the emergency department for recheck Referrals: JUSTO DIOP [Other] - As per Instructions Contreras Sanchez MD [Medical Doctor] - As per Instructions
[2018-11-12 23:13] VITALS: BP 145/89
== END 2018-11-12 23:13 | disposition home or self-care (01) ==
DX: S93.401A Sprain of unspecified ligament of right ankle, initial encounter (principal); W50.0XXA Accidental hit or strike by another person, initial encounter; Y92.520 Airport as the place of occurrence of the external cause; Y93.9 Activity, unspecified; Y99.9 Unspecified external cause status
CPT/HCPCS: 73600; 99283; L4350

== ENCOUNTER 2018-12-09 23:58 | Emergency (ER) | payer OTHER, MEDICAID ==
[2018-12-10] MEDS ORDERED: diphenhydrAMINE 25 MG CAP PO ONE (00:22)
--- NOTE | 2018-12-10 00:31 | EDPHY ---
H & P Stated Complaint: allergic Time Seen by Provider: 12/10/18 00:05 HPI/ROS: Chief Complaint: Allergic reaction HPI: 83-year-old male who has a history of developmental delay, ex-24 week preemie, history of multiple allergies including a eggs and peanuts. Patient woke this morning with the sensation of difficulty breathing and itching around his neck. It is similar to prior allergic reactions. He told his caregiver he felt he needed to use his EpiPen. She did not notice any significant swelling and did not administer the epinephrine per brought him here for evaluation. He did eat a sandwich which was brought home by a friend. Unsure if that could have contained a or knots. Currently is complaining of some shortness of breath. Did vomit once at home. No fevers or chills. No abdominal pain. No cough. ROS: 10 systems were reviewed and were negative except those elements noted in the HPI. PMH: Developmental delay, multiple allergies Social History: No smoking, no alcohol, no recreational drug use Family History: non-contributory Physical Exam: Gen: Awake, Alert, No Distress HEENT: Nose: no rhinorrhea Eyes: PERRLA, EOMI Mouth: Moist mucosa, no oropharyngeal erythema or edema Neck: Supple, no JVD Chest: nontender, lungs clear to auscultation Heart: S1, S2 normal, no murmur Abd: Soft, non-tender, no guarding Back: no CVA tenderness, no midline tenderness Ext: no edema, non-tender Skin: no rash Neuro: CN II-XII intact, Sensation grossly intact, Strength 5/5 in bilateral upper and lower extremities - Personal History Current Tetanus Diphtheria and Acellular Pertussis (TDAP): Yes Tetanus Vaccine Date: < 10 years - Medical/Surgical History Hx Asthma: Yes Hx Chronic Respiratory Disease: No Hx Diabetes: No Hx Cardiac Disease: No Hx Renal Disease: No Hx Cirrhosis: No Hx Alcoholism: No Hx HIV/AIDS: No Hx Splenectomy or Spleen Trauma: No Other PMH: 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 seizures and pseudoseizures. aspirgillous fungus sinusitis with sinus surgeries x 7. asthma. 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 R EYE SURGERY - Social History Smoking Status: Never smoked Constitutional: Initial Vital Signs Temperature (C) 36.5 C 12/10/18 00:05 Heart Rate 71 12/10/18 00:05 Respiratory Rate 16 12/10/18 00:05 Blood Pressure 132/96 H 12/10/18 00:05 O2 Sat (%) 98 12/10/18 00:05 O2 Delivery Mode Room Air Allergies/Adverse Reactions: egg [Egg] Allergy (Severe, Verified 12/10/18 00:04) peanut [Peanut] Allergy (Severe, Verified 12/10/18 00:04) Influenza Virus Vaccines [Influenza Virus Vaccine] Allergy (Intermediate, Verified 12/10/18 00:04) hydrocodone Allergy (Verified 12/10/18 00:04) latex [Latex] Allergy (Verified 12/10/18 00:04) metoclopramide HCl [From Reglan] Allergy (Verified 12/10/18 00:04) prednisone Allergy (Verified 12/10/18 00:04) Shellfish *RETIRED-07/26/12 [Shellfish] Allergy (Verified 12/10/18 00:04) tomato [Tomato] Allergy (Verified 12/10/18 00:04) tree nut [Tree Nut] Allergy (Verified 12/10/18 00:04) Home Medications: Medication Instructions Recorded Calcium Carbonate [Tums 500MG 12/26/15 (OTC)] FEXOFENADINE HCL 12/26/15 Miralax 17 gm (OTC) 12/26/15 Pulmicort 12/26/15 VIMPAT 12/26/15 Vitamin A & D 12/26/15 Albuterol [Proventil Inhaler HFA 1 - 2 puffs IH Q4H #1 mdi 06/29/16 (*)] Ibuprofen [Motrin (*)] 800 mg PO Q6-8PRN #10 tab 11/22/16 Albuterol 5 mg/ml INH [Proventil] 2.5 mg IH QID #25 btl 06/26/17 Topiramate 06/26/17 EPIPEN 12/10/17 Flonase Nasal [place] 12/10/17 MIDAZOLAM 12/10/17 Sertraline HCl 12/10/17 Unisom Sleep Aid 12/10/17 Xopenex 12/10/17 diphenhydrAMINE 12/10/17 Medical Decision Making ED Course/Re-evaluation: 23-year-old male with allergic reaction likely to an ingested food. No angioedema. Will give Benadryl and reassess. Patient's itching in this worsening with worsening urticaria. He has a history of steroid-induced psychosis. Will give epinephrine and IV Pepcid and reassess. Patient is much better. Plan will be to observe after epinephrine. Patient is currently without complaints. He has been observed for over an hour and half post epinephrine. Mother is comfortable taking him home. Will discharge with follow-up as an outpatient, return for any concerns. - Data Points Medications Given: Discontinued Medications Diphenhydramine HCl (Benadryl) 50 mg PO EDNOW ONE Stop: 12/10/18 00:23 Last Admin: 12/10/18 00:28 Dose: 50 mg Epinephrine HCl (Epinephrine) 0.3 mg IM EDNOW ONE Stop: 12/10/18 01:20 Last Admin: 12/10/18 01:23 Dose: 0.3 mg Famotidine (Pepcid) 20 mg IVP EDNOW ONE Stop: 12/10/18 01:20 Last Admin: 12/10/18 01:40 Dose: 20 mg Departure - Departure Disposition: Home, Routine, Self-Care Clinical Impression: Allergic reaction Condition: Good Instructions: General Allergic Reaction (ED) Additional Instructions: Continue taking Benadryl, 50 mg orally every 6 hr. Follow up with primary care physician in 3-4 days for further evaluation. Return to the emergency department for worsening rash, difficulty breathing, fainting, or any other concerns. Referrals: CHRIS WISE [Primary Care Provider] - As per Instructions
[2018-12-10] MEDS ORDERED: FAMOTIDINE 20 MG/2 ML SDV IVP ONE (01:19)
[2018-12-10] MEDS ORDERED: EPINEPHrine 1 MG/ML INJ IM ONE (01:19)
[2018-12-10 03:18] VITALS: BP 121/72
== END 2018-12-10 03:18 | disposition home or self-care (01) ==
DX: T78.40XA Allergy, unspecified, initial encounter (principal)
CPT/HCPCS: 96372; 96374; 99284; J0171

== ENCOUNTER 2018-12-10 18:29 | Emergency (ER) | payer OTHER, MEDICAID ==
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
[2018-12-10 20:36] LABS: PLATELET COUNT 166 10^3/uL (150-400)
[2018-12-11] MEDS ORDERED: LACOSAMIDE 50 MG TAB PO ONE (09:56)
[2018-12-11] MEDS ORDERED: TOPIRAMATE 25 MG TAB PO ONE (09:58)
[2018-12-11] MEDS ORDERED: SERTRALINE HCL 100 MG TAB PO ONE (10:10)
[2018-12-11 14:47] VITALS: BP 112/67
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
[2018-12-12] MEDS ORDERED: SERTRALINE HCL 100 MG TAB PO ONE (09:59)
== END 2018-12-11 14:47 | disposition home or self-care (01) ==
DX: F91.8 Other conduct disorders (principal); R62.50 Unspecified lack of expected normal physiological development in childhood
CPT/HCPCS: 80305; G0480